=== PATIENT | male | born 1965 | race Asian ===

== ENCOUNTER → 2016-07-25 | Outpatient (CLI) | payer BC ==
[~2016-07-25] MED LIST: ACET500T76 PO; NONE PER PT; OMNIPAQUE 350 MG/ML, 100ML BOTTLE ONE
== END | disposition home or self-care (01) ==
LOC: CFH 11:28
PROVIDERS: ATTEND Specialist
DX: C78.7 Secondary malignant neoplasm of liver and intrahepatic bile duct (principal)
CPT/HCPCS: 71260; 74177; Q9967

== ENCOUNTER → 2016-09-20 | Outpatient (CLI) | payer BC ==
[~2016-09-20] MED LIST changes: +ACET500T71 PO; -ACET500T76 PO
== END | disposition home or self-care (01) ==
LOC: CFH 07:17
PROVIDERS: ATTEND Specialist
DX: C78.7 Secondary malignant neoplasm of liver and intrahepatic bile duct (principal); C18.7 Malignant neoplasm of sigmoid colon; R16.1 Splenomegaly, not elsewhere classified; K82.0 Obstruction of gallbladder; R18.8 Other ascites; R59.0 Localized enlarged lymph nodes; R16.0 Hepatomegaly, not elsewhere classified
CPT/HCPCS: 71260; 74177; Q9967

== ENCOUNTER → 2017-03-22 | Outpatient (CLI) | payer BC | END | disposition home or self-care (01) | LOC: CFH 08:23 | PROVIDERS: ATTEND Specialist | DX: C18.7 Malignant neoplasm of sigmoid colon (principal); C78.7 Secondary malignant neoplasm of liver and intrahepatic bile duct | CPT/HCPCS: 71260; 74177; Q9967 ==

== ENCOUNTER → 2017-06-13 | Outpatient (CLI) | payer BC | END | disposition home or self-care (01) | LOC: CFH 12:47 | PROVIDERS: ATTEND Specialist | DX: C78.7 Secondary malignant neoplasm of liver and intrahepatic bile duct (principal); C18.7 Malignant neoplasm of sigmoid colon | CPT/HCPCS: 71260; 74177; Q9967 ==

== ENCOUNTER → 2018-04-09 | Outpatient (CLI) | payer BC | END | disposition home or self-care (01) | LOC: RAD 10:04 | PROVIDERS: ATTEND Specialist | DX: C18.7 Malignant neoplasm of sigmoid colon (principal) | CPT/HCPCS: 71260; 74177; Q9967 ==

== ENCOUNTER → 2018-07-08 | Outpatient (CLI) | payer BC | END | disposition home or self-care (01) | LOC: RAD 09:50 | PROVIDERS: ATTEND Specialist | DX: C18.7 Malignant neoplasm of sigmoid colon (principal); C78.7 Secondary malignant neoplasm of liver and intrahepatic bile duct; J98.4 Other disorders of lung; K82.0 Obstruction of gallbladder | CPT/HCPCS: 71260; 74177; Q9967 ==

== ENCOUNTER 2019-01-22 18:09 | Inpatient (IN) | payer BC ==
[~2019-01-22] VITALS: Ht 175.3 cm; Wt 79.3 kg
[~2019-01-22 18:09] MED LIST changes: -OMNIPAQUE 350 MG/ML, 100ML BOTTLE ONE
--- NOTE | 2019-01-22 18:09 | NUR ---
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
[2019-01-22] MEDS ORDERED: PANTOPRAZOLE 80 MG in SODIUM CHLORIDE 0.9% 50 ML IVPB ONE (18:13)
[2019-01-22] MEDS ORDERED: SODIUM CHLORIDE FLUSH 10ML SYR IVF ONE (18:30)
[2019-01-22] MEDS ORDERED: SODIUM CHLORIDE 0.9% 1,000ML IVBOLUS ONE (18:30)
[2019-01-22] MEDS ORDERED: METH750T87 PO (18:35)
[2019-01-22] MEDS ORDERED: SITA100T PO (18:35)
[2019-01-22] MEDS ORDERED: TRAM50TA2 PO (18:35)
[2019-01-22] MEDS ORDERED: PANTOPRAZOLE 80 MG in SODIUM CHLORIDE 0.9% 100 ML IV SCH (18:45)
[2019-01-22 18:54] LABS: INTERNATIONAL NORMALIZED RATIO 1.12 (0.93-1.1); PROTHROMBIN TIME 11.7 Seconds (9.6-11.5)
[2019-01-22 18:56] LABS: ALANINE AMINOTRANSFERASE 65 U/L (12-78); ALBUMIN 2.7 g/dL (3.4-5.0); ANION GAP 9 mmol/L (5-15); CALCIUM 7.9 mg/dL (8.5-10.1); CHLORIDE 112 mmol/L (98-107); CREATININE 1.21 mg/dL (0.7-1.3)
[2019-01-22 18:58] LABS: ALKALINE PHOSPHATASE 113 U/L (45-117); BILIRUBIN,TOTAL 1.3 mg/dL (0.2-1.0); TOTAL PROTEIN 5.5 g/dL (6.4-8.2)
--- NOTE | 2019-01-22 19:06 | NUR ---
REPORT GIVEN TO TINA
--- NOTE | 2019-01-22 19:22 | NUR ---
RECEIVED BS REPORT FROM MARLON MAYS AT APROXIMATELY 1900. PT. WAS RESTING ON GURNEY WITH NO ACUTE DISTRESS NOTED. IVF INFUSING PER ORDER. AWAING MED FROM PHARMACY. ALL MONITORS IN PLACE. CALL LIGHT IN REACH. ALL SAFETY MEASURES OBSERVED AT THAT TIME.
[2019-01-22 19:40] LABS: BASOPHILS % (AUTO) 0 % (0-1); EOSINOPHILS # (AUTO) 0.29 x10^3/uL (0-0.4); EOSINOPHILS % (AUTO) 2 % (1-7); LYMPHOCYTES # (AUTO) 0.53 x10^3/uL (1-3.4); LYMPHOCYTES % (AUTO) 3 % (22-44); MD SCAN; MEAN CORPUSCULAR HEMOGLOBIN 33.3 pg (27.5-34.5); MEAN CORPUSCULAR HGB CONC 33.6 g/dL (33.2-36.2); MEAN CORPUSCULAR VOLUME 99.1 fL (81-97); MEAN PLATELET VOLUME 8.8 fL (7.4-10.4); MONOCYTES # (AUTO) 0.79 x10^3/uL (0.2-0.8); MONOCYTES % (AUTO) 5 % (2-9); NEUTROPHILS # (AUTO) 14.15 x10^3/uL (1.8-6.8); NEUTROPHILS % (AUTO) 90 % (42-75); PLATELET COUNT 129 x10^3/uL (130-400); RED BLOOD COUNT 3.17 x10^6/uL (4.38-5.82); RED CELL DISTRIBUTION WIDTH 15.1 % (9.4-14.8)
--- NOTE | 2019-01-22 21:21 | NUR ---
NG TUBE PLACED PER DR. JENNINGS ORDER. PT. TOLERATED WELL. PLACEMENT CONFIRMED BY ASPIRATION AND AUSCULTAION BY 2 RNS. IMMEDIATE RETURN OF COPIUS DARK RED BLOOD 150ML; PT. REPORTS RELIEF OF ABD PAIN WITH THIS. DR. JENNINGS IN TO EVAL AND DISCUSS FURTHER POC WITH PT. PT. AWARE OF PLAN FOR ADMISSION.
[2019-01-22] MEDS ORDERED: SODIUM CHLORIDE 0.9% 1,000 ML IV ONE (21:46)
[2019-01-22] MEDS ORDERED: SODIUM CHLORIDE FLUSH 10ML SYR IVF PRN (22:00)
--- NOTE | 2019-01-22 22:18 | NUR ---
REPORT GIVEN TO MARLON AMES.
[2019-01-22 22:43] VITALS: BP 121/76
[2019-01-22 22:55] LABS: MEAN CORPUSCULAR HEMOGLOBIN 32.6 pg (27.5-34.5); MEAN CORPUSCULAR HGB CONC 33.4 g/dL (33.2-36.2); MEAN CORPUSCULAR VOLUME 97.6 fL (81-97); MEAN PLATELET VOLUME 8.9 fL (7.4-10.4); PLATELET COUNT 124 x10^3/uL (130-400); RED BLOOD COUNT 3.04 x10^6/uL (4.38-5.82); RED CELL DISTRIBUTION WIDTH 15.1 % (9.4-14.8)
[2019-01-22 23:42] LABS: MD YES
[2019-01-22 23:45] LABS: <PLATELET ESTIMATE> DECREASED; ANISOCYTOSIS 1+; LYMPHS% (MANUAL) 6 % (22-44); MONOS% (MANUAL) 3 % (2-9); SEG#(MANUAL) 15.11 x10^3/uL (1.8-6.8); SEGS% (MANUAL) 91 % (42-75)
[2019-01-22 23:46] LABS: <PLT MORPHOLOGY> NORMAL PLT MORPH
[2019-01-23] MEDS ORDERED: LIDODERM 5% PATCH TD PRN
[2019-01-23] MEDS ORDERED: morphine SULFATE 10 MG/ML, 1ML IVPush PRN
[2019-01-23] MEDS ORDERED: hydrALAzine 20 MG/ML, 1ML IVPush PRN
[2019-01-23] MEDS ORDERED: MORPHINE SULFATE 4 MG/ML, 1ML IVPush ONE
[2019-01-23] MEDS ORDERED: FLUO1VIA8 IV (00:24)
[2019-01-23 00:34] VITALS: BP 116/71
[2019-01-23 01:36] LABS: HEMOGLOBIN A1C 6.2 % (4.2-6.3)
[2019-01-23 04:29] LABS: ANION GAP 4 mmol/L (5-15); CALCIUM 7.7 mg/dL (8.5-10.1); CHLORIDE 117 mmol/L (98-107); CREATININE 0.93 mg/dL (0.7-1.3)
[2019-01-23 05:23] LABS: BASOPHILS # (AUTO) 0.01 x10^3/uL (0-0.1); BASOPHILS % (AUTO) 0 % (0-1); EOSINOPHILS % (AUTO) 0 % (1-7); LYMPHOCYTES % (AUTO) 5 % (22-44); MD SCAN; MEAN CORPUSCULAR HEMOGLOBIN 32.7 pg (27.5-34.5); MEAN CORPUSCULAR HGB CONC 33.4 g/dL (33.2-36.2); MEAN CORPUSCULAR VOLUME 97.9 fL (81-97); MEAN PLATELET VOLUME 8.8 fL (7.4-10.4); MONOCYTES % (AUTO) 5 % (2-9); NEUTROPHILS % (AUTO) 90 % (42-75); PLATELET COUNT 95 x10^3/uL (130-400); RED BLOOD COUNT 2.77 x10^6/uL (4.38-5.82); RED CELL DISTRIBUTION WIDTH 15.1 % (9.4-14.8)
[2019-01-23] MEDS: PANTOPRAZOLE 80 MG in SODIUM CHLORIDE 0.9% 100 ML IV SCH ×2 (05:47→19:00)
[2019-01-23] MEDS: INSULIN LISPRO 100 UNITS/ML, PEN SQ-INSULIN SCH ×4 (07:00→20:21)
[2019-01-23 10:00] VITALS: BP 115/70
[2019-01-23] MEDS ORDERED: MIDAZOLAM 1 MG/ML, 2ML ONE (10:33)
[2019-01-23] MEDS ORDERED: KETOROLAC 30 MG/1 ML IV PRN (11:30)
[2019-01-23] MEDS ORDERED: MEPERIDINE/PF 25MG/0.5ML IVPush PRN (11:30)
[2019-01-23] MEDS ORDERED: hydrALAzine 20 MG/ML, 1ML IV PRN (11:30)
[2019-01-23] MEDS ORDERED: ALBUTEROL SULFATE 2.5 MG/3 ML NPPB PRN (11:30)
[2019-01-23] MEDS ORDERED: OXYcodone 5 MG/5 ML ORAL.SOL UDC PO PRN (11:30)
[2019-01-23] MEDS ORDERED: ONDANSETRON 2MG/ML, 2ML IVPush PRN ×2 (11:30)
[2019-01-23] MEDS ORDERED: PROMETHAZINE 25 MG/ML, 1ML IV PRN (11:30)
[2019-01-23] MEDS ORDERED: METOCLOPRAMIDE 5 MG/ML, 2ML IV PRN (11:30)
[2019-01-23] MEDS ORDERED: LABETALOL 5MG/ML, 20ML IV PRN (11:30)
[2019-01-23] MEDS ORDERED: FENTANYL PF 100 MCG/2ML IV PRN (11:30)
[2019-01-23] MEDS ORDERED: FENTANYL PF 100 MCG/2ML ONE (11:39)
[2019-01-23] MEDS ORDERED: OXYcodone 5 MG/5 ML ORAL.SOL UDC ONE (11:40)
[2019-01-23] MEDS ORDERED: KETOROLAC 30 MG/1 ML ONE (11:47)
[2019-01-23] MEDS ORDERED: HYDROmorphone 1 MG/ML, 1ML VIAL ONE ×2 (11:48→12:24)
[2019-01-23] MEDS: HYDROmorphone 1 MG/ML, 1ML INJ IV PRN ×3 (12:25→12:37)
[2019-01-23 13:33] VITALS: BP 124/76
[2019-01-23 14:49] LABS: BASOPHILS % (AUTO) 0 % (0-1); EOSINOPHILS % (AUTO) 2 % (1-7); LYMPHOCYTES # (AUTO) 0.95 x10^3/uL (1-3.4); LYMPHOCYTES % (AUTO) 7 % (22-44); MD SCAN; MEAN CORPUSCULAR HEMOGLOBIN 32.9 pg (27.5-34.5); MEAN CORPUSCULAR HGB CONC 33.1 g/dL (33.2-36.2); MEAN CORPUSCULAR VOLUME 99.5 fL (81-97); MONOCYTES % (AUTO) 5 % (2-9); NEUTROPHILS # (AUTO) 11.45 x10^3/uL (1.8-6.8); NEUTROPHILS % (AUTO) 87 % (42-75); PLATELET COUNT 119 x10^3/uL (130-400); RED BLOOD COUNT 2.79 x10^6/uL (4.38-5.82); RED CELL DISTRIBUTION WIDTH 15.4 % (9.4-14.8)
[2019-01-23] MEDS ORDERED: PROPOFOL 10 MG/ML, 20ML ONE (15:52)
[2019-01-23] MEDS ORDERED: ONDANSETRON 2MG/ML, 2ML ONE (15:52)
[2019-01-23] MEDS ORDERED: SUCCINYLCHOLINE 20 MG/ML, 10ML ONE (15:52)
[2019-01-23 19:27] VITALS: BP 115/73
[2019-01-23] MEDS: LORazepam 2 MG/ML, 1ML IVPush PRN (20:35)
[2019-01-24 00:19] VITALS: BP 107/68
[2019-01-24] MEDS: PANTOPRAZOLE 80 MG in SODIUM CHLORIDE 0.9% 100 ML IV SCH ×2 (05:00→15:00)
[2019-01-24 05:53] LABS: MEAN CORPUSCULAR HEMOGLOBIN 32.8 pg (27.5-34.5); MEAN CORPUSCULAR HGB CONC 33.3 g/dL (33.2-36.2); MEAN CORPUSCULAR VOLUME 98.6 fL (81-97); RED BLOOD COUNT 2.52 x10^6/uL (4.38-5.82); RED CELL DISTRIBUTION WIDTH 15.2 % (9.4-14.8)
[2019-01-24 06:05] LABS: ANION GAP 4 mmol/L (5-15); CALCIUM 7.9 mg/dL (8.5-10.1); CHLORIDE 118 mmol/L (98-107)
[2019-01-24 06:43] LABS: BASOPHILS # (AUTO) 0.01 x10^3/uL (0-0.1); BASOPHILS % (AUTO) 0 % (0-1); EOSINOPHILS % (AUTO) 0 % (1-7); LYMPHOCYTES # (AUTO) 0.85 x10^3/uL (1-3.4); LYMPHOCYTES % (AUTO) 14 % (22-44); MD SCAN; MEAN PLATELET VOLUME 8.5 fL (7.4-10.4); MONOCYTES # (AUTO) 0.21 x10^3/uL (0.2-0.8); MONOCYTES % (AUTO) 3 % (2-9); NEUTROPHILS # (AUTO) 5.22 x10^3/uL (1.8-6.8); NEUTROPHILS % (AUTO) 83 % (42-75); PLATELET COUNT 85 x10^3/uL (130-400)
[2019-01-24] MEDS: INSULIN LISPRO 100 UNITS/ML, PEN SQ-INSULIN SCH ×4 (08:00→20:38)
[2019-01-24 08:40] VITALS: BP 103/67
[2019-01-24] MEDS: ALUMINUM/MAG/SIMETHICONE 30 ML UDC PO PRN ×3 (12:00→21:40)
[2019-01-24 15:33] VITALS: BP 116/67
[2019-01-24] MEDS: OMEPRAZOLE 20 MG CAPSULE.DR PO SCH (18:06)
[2019-01-24 21:22] VITALS: BP 110/70
[2019-01-24] MEDS: LORazepam 2 MG/ML, 1ML IVPush PRN (21:40)
[2019-01-25 01:46] VITALS: BP 102/68
[2019-01-25 04:42] LABS: MEAN CORPUSCULAR HEMOGLOBIN 32.9 pg (27.5-34.5); MEAN CORPUSCULAR HGB CONC 33.2 g/dL (33.2-36.2); PLATELET COUNT 72 x10^3/uL (130-400); RED BLOOD COUNT 2.29 x10^6/uL (4.38-5.82); RED CELL DISTRIBUTION WIDTH 14.9 % (9.4-14.8)
[2019-01-25 05:40] LABS: BASOPHILS # (AUTO) 0.01 x10^3/uL (0-0.1); BASOPHILS % (AUTO) 0 % (0-1); EOSINOPHILS # (AUTO) 0.15 x10^3/uL (0-0.4); EOSINOPHILS % (AUTO) 3 % (1-7); LYMPHOCYTES # (AUTO) 0.72 x10^3/uL (1-3.4); LYMPHOCYTES % (AUTO) 16 % (22-44); MD SCAN; MONOCYTES # (AUTO) 0.18 x10^3/uL (0.2-0.8); MONOCYTES % (AUTO) 4 % (2-9); NEUTROPHILS # (AUTO) 3.53 x10^3/uL (1.8-6.8); NEUTROPHILS % (AUTO) 77 % (42-75)
[2019-01-25] MEDS: OMEPRAZOLE 20 MG CAPSULE.DR PO SCH (06:04)
[2019-01-25] MEDS: INSULIN LISPRO 100 UNITS/ML, PEN SQ-INSULIN SCH ×2 (07:35→11:29)
[2019-01-25] MEDS: ALUMINUM/MAG/SIMETHICONE 30 ML UDC PO PRN (07:38)
[2019-01-25 08:35] VITALS: BP 96/60
[2019-01-25] MEDS ORDERED: OMEP-110 PO (09:17)
== END 2019-01-25 12:40 | disposition home or self-care (01) | DRG 432 ==
LOC: ED 20:04 → EDIP 22:11 → 4WST 22:40 → DCLOUNGE 01-25 12:30
PROVIDERS: ADMIT Internal Medicine; ATTEND Internal Medicine
PROC: 06L38CZ Occlusion of Esophageal Vein with Extraluminal Device, Via Natural or Artificial Opening Endoscopic (ICD-10-PCS; principal; 2019-01-23 11:30)
DX: K74.60 Unspecified cirrhosis of liver (principal); K25.4 Chronic or unspecified gastric ulcer with hemorrhage; I85.11 Secondary esophageal varices with bleeding; C78.7 Secondary malignant neoplasm of liver and intrahepatic bile duct; C18.9 Malignant neoplasm of colon, unspecified; D62 Acute posthemorrhagic anemia; K76.6 Portal hypertension; T45.1X5A Adverse effect of antineoplastic and immunosuppressive drugs, initial encounter; D69.59 Other secondary thrombocytopenia; E83.51 Hypocalcemia; E11.65 Type 2 diabetes mellitus with hyperglycemia; D72.829 Elevated white blood cell count, unspecified; E87.5 Hyperkalemia; I86.4 Gastric varices; Y92.89 Other specified places as the place of occurrence of the external cause; Z83.3 Family history of diabetes mellitus; Z87.891 Personal history of nicotine dependence
CPT/HCPCS: 36415; 71045; 74021; 80048; 80053; 82105; 82962; 83036; 83690; 85014; 85018; 85025; 85610; 85730; 86705; 86706; 86803; 86850; 86900; 87340; 96365; 96366; 96375; G0378; J1170; J1885; J2250; J2405; J2704; J3010; C9113; J0330; J1815; J2060; J2270; J7030

== ENCOUNTER 2019-01-28 14:04 | Emergency (ER) | payer BC ==
[~2019-01-28] VITALS: Ht 175.3 cm; Wt 77.5 kg
[~2019-01-28 14:04] MED LIST changes: +ACET500T64 PO; -ACET500T71 PO; +FLUO1VIA8 IV; +METH750T87 PO; +OMEP-110 PO; +SITA100T PO; +TRAM50TA2 PO
--- NOTE | 2019-01-28 14:32 | NUR ---
PT TO ED FOR INCREASED HR. PT STATES HIGHEST HR 123 WHILE WALKING UP STAIRS TODAY. PT DENIES SOB, NAUSEA, VOMITING, FEVERS OR CHILLS. PT ON TX FOR COLON CA WITH METS TO LIVER X3 YEARS. LAST IV TX 1 WEEK AGO TODAY. 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 PT CONNECTED TO ALL MONITORS. TACHY 90S-100, ALL OTHER VSS ON RA. PT PRESENTS VERY ANXIOUS. PT REASSURED THAT DOC WILL SEE HIM SOON. HR NOW AT 101, PT RELIEVED THAT HR IS DECREASED FROM EARLIER. NO NEEDS EPXRESSED AT THIS TIME. CALL LIGHT VICKY CALI. AWAITING EDMD ASSESSMENT.
[2019-01-28] MEDS ORDERED: SODIUM CHLORIDE FLUSH 10ML SYR IVF ONE (15:00)
--- NOTE | 2019-01-28 15:09 | NUR ---
PT RESTING IN ROOM. HR IMPROVING, VSS ON RA. PER PT REQUEST, PORT WILL NOT BE ACCESSED AT THIS TIME. PT REFUSING PIV ACCESS UNTIL MEDICATIONS ORDERED. LABS DRAWN. AWAITING RESULTS. NO NEEDS EXPRESSED. CALL LIGHT WITHIN REACH.
[2019-01-28 15:23] LABS: ANION GAP 6 mmol/L (5-15); CALCIUM 7.9 mg/dL (8.5-10.1); CHLORIDE 108 mmol/L (98-107)
[2019-01-28 15:26] LABS: ALANINE AMINOTRANSFERASE 80 U/L (12-78); ALKALINE PHOSPHATASE 178 U/L (45-117); BILIRUBIN,TOTAL 0.4 mg/dL (0.2-1.0); CREATININE 0.91 mg/dL (0.7-1.3)
[2019-01-28 15:28] LABS: BASOPHILS # (AUTO) 0.01 x10^3/uL (0-0.1); BASOPHILS % (AUTO) 0 % (0-1); EOSINOPHILS # (AUTO) 0.38 x10^3/uL (0-0.4); EOSINOPHILS % (AUTO) 6 % (1-7); LYMPHOCYTES # (AUTO) 0.64 x10^3/uL (1-3.4); LYMPHOCYTES % (AUTO) 10 % (22-44); MD NO; MEAN CORPUSCULAR HEMOGLOBIN 32.8 pg (27.5-34.5); MEAN CORPUSCULAR HGB CONC 33.6 g/dL (33.2-36.2); MEAN CORPUSCULAR VOLUME 97.7 fL (81-97); MEAN PLATELET VOLUME 8.4 fL (7.4-10.4); MONOCYTES # (AUTO) 0.28 x10^3/uL (0.2-0.8); MONOCYTES % (AUTO) 5 % (2-9); NEUTROPHILS # (AUTO) 4.81 x10^3/uL (1.8-6.8); NEUTROPHILS % (AUTO) 79 % (42-75); PLATELET COUNT 121 x10^3/uL (130-400); RED BLOOD COUNT 2.37 x10^6/uL (4.38-5.82); RED CELL DISTRIBUTION WIDTH 14.4 % (9.4-14.8)
[2019-01-28 16:16] VITALS: BP 125/69
--- NOTE | 2019-01-28 16:17 | NUR ---
PT RESTING IN ROOM WITH FAMILY AT BS. VSS. NO NEEDS EXPRESSED. CALL LIGHT WITHIN REACH. AWAITING LAB RESULTS.
--- NOTE | 2019-01-28 16:25 | NUR ---
TASK RN: CALLED LAB REGARDING COAG STUDIES. TECH STATES 'THEY DIDN'T GIVE THEM TO ME, IHAVE TO GO FIND THEM. I WILL RUN THEM SOON I FIND THEM'. PRIMARY RN AND ERP AWARE
[2019-01-28 16:36] LABS: INTERNATIONAL NORMALIZED RATIO 0.97 (0.93-1.1); PROTHROMBIN TIME 10.2 Seconds (9.6-11.5)
--- NOTE | 2019-01-28 17:01 | NUR ---
TASK RN: PT REPORTS IMPROVEMENT IN S/S SINCE ARRIVAL. DC EDUCATION PROVIDED, PT DEMONSTRATES UNDERSTANDING. PT AMBULATED STEADILY TO DC WITH RN AND FAMILY. FAMILY TO TRANSPORT PT HOME.
== END 2019-01-28 17:03 | disposition home or self-care (01) ==
LOC: ED 16:55
DX: R00.0 Tachycardia, unspecified (principal); D62 Acute posthemorrhagic anemia
CPT/HCPCS: 36415; 80053; 85025; 85610; 85730; 93005; 99284

== ENCOUNTER → 2019-02-24 | Outpatient (CLI) | payer BC ==
[~2019-02-24] MED LIST changes: +OMNIPAQUE 350 MG/ML, 100ML BOTTLE ONE
== END | disposition home or self-care (01) ==
LOC: CFH 11:35
PROVIDERS: ATTEND Specialist
DX: C18.7 Malignant neoplasm of sigmoid colon (principal); K76.9 Liver disease, unspecified; K80.20 Calculus of gallbladder without cholecystitis without obstruction; R91.1 Solitary pulmonary nodule; Z87.891 Personal history of nicotine dependence
CPT/HCPCS: 71260; 74177; Q9967

== ENCOUNTER 2019-04-16 09:46 | Outpatient (CLI) | payer BC ==
[~2019-04-16 09:46] MED LIST changes: -OMNIPAQUE 350 MG/ML, 100ML BOTTLE ONE
[2019-04-16] MEDS ORDERED: OMNIPAQUE 350 MG/ML, 100ML BOTTLE ONE (15:29)
== END 2019-04-16 23:59 | disposition home or self-care (01) ==
LOC: CFH 09:46
PROVIDERS: ATTEND Specialist
DX: C18.7 Malignant neoplasm of sigmoid colon (principal); R91.1 Solitary pulmonary nodule; R60.0 Localized edema; R16.0 Hepatomegaly, not elsewhere classified
CPT/HCPCS: 71260; 74177; Q9967